=== PATIENT | female | born 1970 | race Caucasian/White ===

== ENCOUNTER 2019-03-01 17:35 | Emergency (ER) | payer BC ==
[2019-03-01 17:47] VITALS: BP 125/83
--- NOTE | 2019-03-01 17:48 | UC ---
Complaint Female HPI - HPI Summary HPI Summary: 48 yo female presents with UTI symptoms. She tells me that over the last 3 weeks she developed some bladder pressure and odor. She has had a UTI in the past and this feels similar. She has been taking AZO and this has not been helping. She notes feeling "swollen down there". No concern for STDs today. Recent PAP and pelvic exam in October by her OBGYN and this was normal per pt. She denies abdominal pain, n/v, flank pain, hematuria, vaginal bleeding or discharge. - History Of Current Complaint Chief Complaint: UCGU Stated Complaint: UTI Time Seen by Provider: 03/01/19 17:47 Hx Obtained From: Patient Hx Last Menstrual Period: tubal Onset/Duration: Sudden Onset Timing: Constant Severity Initially: Mild Severity Currently: Mild Pain Intensity: 4 Pain Scale Used: 0-10 Numeric - Allergies/Home Medications Allergies/Adverse Reactions: Allergies Allergy/AdvReac Type Severity Reaction Status Date / Time amoxicillin Allergy Rash Verified 03/01/19 17:40 Sulfa (Sulfonamide Allergy Rash Verified 03/01/19 17:40 Antibiotics) triamcinolone [From Kenalog] Allergy Palpitation Verified 03/01/19 17:40 s Home Medications: Home Medications ValACYclovir (*) [Valtrex 1 GM(*)] 1 tab PO DAILY 03/01/19 [History Confirmed ] PMH/Surg Hx/FS Hx/Imm Hx - Additional Past Medical History Additional PMH: None - Surgical History Surgical History: Yes Surgery Procedure, Year, and Place: CYST REMOVED FROM LEFT INDEX FINGER, UTERINE ABLATION, TUBAL, TUBES IN EARS, TONSILS - Family History Known Family History: Positive: None - Social History Occupation: Employed Full-time Lives: With Family Alcohol Use: Rare Substance Use Type: None Smoking Status (MU): Never Smoked Tobacco Review of Systems All Other Systems Reviewed And Are Negative: No Constitutional: Positive: Negative Skin: Positive: Negative Respiratory: Positive: Negative Cardiovascular: Positive: Negative Genitourinary: Positive: Dysuria Neurological: Positive: Negative Psychological: Positive: Negative Physical Exam - Summary Physical Exam Summary: GENERAL: NAD. WDWN. No pain distress. SKIN: No rashes, sores, lesions, or open wounds. NECK: Supple. Nontender. No lymphadenopathy. CHEST: CTAB. No r/r/w. No accessory muscle use. Breathing comfortably and in no distress. CV: RRR. Pulses intact. Cap refill <2seconds ABDOMEN: Soft. NTTP. No distention or guarding. No CVA tenderness. Bowel sounds present NEURO: Alert. PSYCH: Age appropriate behavior. Triage Information Reviewed: Yes Vital Signs: Initial Vital Signs Temp 97.4 F 03/01/19 17:41 Pulse 59 03/01/19 17:41 Resp 18 03/01/19 17:41 BP 125/83 03/01/19 17:41 Pulse Ox 100 03/01/19 17:41 Laboratory Tests 03/01/19 17:58 POC Urine Color Yellow POC Urine Clarity Clear POC Urine pH 7.0 POC Ur Specif [place] 1.015 POC Urine Protein Negative POC Ur Glucose (UA) Negative POC Urine Ketones Negative POC Urine Blood Negative POC Urine Nitrite Negative POC Urine Bilirubin Negative POC Urine Urobilinogen 0.2 POC U Leukocyte Esteras Negative Vital Signs Reviewed: Yes Complaint Female Dx - Course Course Of Treatment: UA as above. Will sign out to Cheyanne ELLIOTT pending pelvic exam and US results. - Differential Dx/Diagnosis Provider Diagnosis: Dysuria Discharge ED - Sign-Out/Discharge Documenting (check all that apply): Patient Departure, Sign-Out Patient Signing out patient TO: Cheyanne Phillips All imaging exams completed and their final reports reviewed: Yes - Discharge Plan Condition: Stable Disposition: HOME Referrals: No Primary Care Phys,NOPCP [Primary Care Provider] - - Billing Disposition and Condition Condition: STABLE Disposition: Home
--- NOTE | 2019-03-01 19:20 | UC ---
Complaint Female HPI - HPI Summary HPI Summary: 48 yo female presents with UTI symptoms. She tells me that over the last 3 weeks she developed some bladder pressure and odor. She has had a UTI in the past and this feels similar. She has been taking AZO and this has not been helping. She notes feeling "swollen down there". No concern for STDs today. Recent PAP and pelvic exam in October by her OBGYN and this was normal per pt. She denies abdominal pain, n/v, flank pain, hematuria, vaginal bleeding or discharge. - History Of Current Complaint Chief Complaint: UCGU Stated Complaint: UTI Time Seen by Provider: 03/01/19 17:47 Hx Obtained From: Patient Hx Last Menstrual Period: tubal Onset/Duration: Sudden Onset Timing: Constant Severity Initially: Mild Severity Currently: Mild Pain Intensity: 4 Pain Scale Used: 0-10 Numeric - Allergies/Home Medications Allergies/Adverse Reactions: Allergies Allergy/AdvReac Type Severity Reaction Status Date / Time amoxicillin Allergy Rash Verified 03/01/19 17:40 Sulfa (Sulfonamide Allergy Rash Verified 03/01/19 17:40 Antibiotics) triamcinolone [From Kenalog] Allergy Palpitation Verified 03/01/19 17:40 s Home Medications: Home Medications ValACYclovir (*) [Valtrex 1 GM(*)] 1 tab PO DAILY 03/01/19 [History Confirmed ] PMH/Surg Hx/FS Hx/Imm Hx - Additional Past Medical History Additional PMH: None - Surgical History Surgical History: Yes Surgery Procedure, Year, and Place: CYST REMOVED FROM LEFT INDEX FINGER, UTERINE ABLATION, TUBAL, TUBES IN EARS, TONSILS - Family History Known Family History: Positive: None - Social History Occupation: Employed Full-time Lives: With Family Alcohol Use: Rare Substance Use Type: None Smoking Status (MU): Never Smoked Tobacco Review of Systems All Other Systems Reviewed And Are Negative: No Constitutional: Positive: Negative Skin: Positive: Negative Respiratory: Positive: Negative Cardiovascular: Positive: Negative Genitourinary: Positive: Dysuria Neurological: Positive: Negative Psychological: Positive: Negative Physical Exam Triage Information Reviewed: Yes Vital Signs: Initial Vital Signs Temp 97.4 F 03/01/19 17:41 Pulse 59 03/01/19 17:41 Resp 18 03/01/19 17:41 BP 125/83 03/01/19 17:41 Pulse Ox 100 03/01/19 17:41 Vital Signs Reviewed: Yes Complaint Female Dx - Differential Dx/Diagnosis Provider Diagnosis: Dysuria Discharge ED - Sign-Out/Discharge All imaging exams completed and their final reports reviewed: Yes - Discharge Plan Condition: Stable Disposition: HOME Patient Education Materials: Pelvic Pain in Women (ED) Referrals: [facility] [place] [facility] [Outside] Sean Torres MD [Medical Doctor] - Additional Instructions: As discussed, your urine did not show sign of infection today. It is unclear what is causing your discomfort. The ultrasound that was done tonight will be read and you will be notified with any abnormal results. It is recommended that you follow up with the physician referral or the urology referral listed below for further evaluation of your symptoms. Go to the emergency room with any new or worsening symptoms. - Billing Disposition and Condition Condition: STABLE Disposition: Home
--- NOTE | 2019-03-01 20:03 | UC ---
- Progress Note Progress Note: Pelvic exam WNL. No external lesions, swelling, tenderness. No abnormal discharge or bleeding. Cervix visualized: no erythema, lesions, or bleeding. Patient noted "bladder pressure" with bimanual exam. No cervical motion tenderness - Results/Orders Results/Orders: TRANSVAGINAL ULTRASOUND FINDINGS: Uterus/cervix: The uterus is retroverted and measures 5.6 x 2.7 x 3.8 cm. The endometrium measures 3 mm. There is an 8mm nabothian cyst in the cervix. Right adnexa: Right ovary measures 2.0 x 1.0 x 1.5 cm, with normal vascular flow. There is a complex right ovarian cyst measuring 8.5 x 6.3 by 9.2 mm. Left adnexa: Left ovary measures 3.0 x 1.5 x 1.3 cm, with normal vascular flow. Free fluid: No free fluid is seen in the cul-de-sac. IMPRESSION: 1. Complex subcentimeter right ovarian cyst, as above. 2. No ovarian torsion. 3. No free fluid in the cul-de-sac. Course/Dx - Course Course Of Treatment: Findings of US not likely causing current symptoms. Pelvic exam WNL and UA negative. Patient declined yeast, BV, and STI testing. I called patient with US findings and instructed to continue with swain to follow up with urology for further eval. Patient voiced understanding and agreed with plan. - Diagnoses Provider Diagnoses: Dysuria Discharge ED - Sign-Out/Discharge Documenting (check all that apply): Patient Departure All imaging exams completed and their final reports reviewed: Yes - Discharge Plan Condition: Stable Disposition: HOME Patient Education Materials: Pelvic Pain in Women (ED) Referrals: [facility] [place] [facility] [place] [facility] [Outside] Sean Torres MD [Medical Doctor] - Additional Instructions: As discussed, your urine did not show sign of infection today. It is unclear what is causing your discomfort. The ultrasound that was done tonight will be read and you will be notified with any abnormal results. It is recommended that you follow up with the physician referral or the urology referral listed below for further evaluation of your symptoms. Go to the emergency room with any new or worsening symptoms. - Billing Disposition and Condition Condition: STABLE Disposition: Home
== END 2019-03-01 19:35 | disposition home or self-care (01) ==
LOC: UCEAST 17:35
DX: R30.0 Dysuria (principal); N83.201 Unspecified ovarian cyst, right side; Z88.0 Allergy status to penicillin; Z88.2 Allergy status to sulfonamides; Z88.8 Allergy status to other drugs, medicaments and biological substances
CPT/HCPCS: 76830; 81003; 84702; 87086; 99211; G0463